=== PATIENT | female | born 1985 | race Caucasian/White ===

== ENCOUNTER 2016-07-28 06:14 | Emergency (ER) | payer OTHER, SELFPAY ==
[~2016-07-28] VITALS: Ht 177.8 cm; Wt 72.6 kg
[2016-07-28] MEDS ORDERED: LIDOCAINE 1% MDV 20ML VIAL SC ONE (06:45)
[2016-07-28 07:01] VITALS: BP 151/78
[2016-07-28] MEDS ORDERED: BACITRACIN OINT 30GM TOP ONE (07:30)
== END 2016-07-28 07:36 | disposition home or self-care (01) ==
LOC: M ED 07:36
DX: S81.812A Laceration without foreign body, left lower leg, initial encounter (principal); S80.812A Abrasion, left lower leg, initial encounter; X58.XXXA Exposure to other specified factors, initial encounter; Y92.39 Other specified sports and athletic area as the place of occurrence of the external cause; Y93.89 Activity, other specified; Y99.9 Unspecified external cause status

== ENCOUNTER → 2021-05-02 | Outpatient (CLI) | payer OTHER | LOC: M RAD 14:10 | PROVIDERS: ATTEND Registered Nurse | DX: E04.9 Nontoxic goiter, unspecified (principal) ==